=== PATIENT | male | born 1990 | race Caucasian/White ===

== ENCOUNTER 2019-04-15 03:41 | Inpatient (IN) | payer SELFPAY ==
[2019-04-15] MEDS ORDERED: SODIUM CHLORIDE 0.9% 1000ML 1,000 ML IVS ONE (04:32)
[2019-04-15] MEDS ORDERED: ACETAMINOPHEN 500 MG TAB PO ONE (04:32)
--- NOTE | 2019-04-15 04:41 | ED.PDOC ---
History of Present Illness - General Chief Complaint: Abdominal Pain Stated Complaint: abdominal pain Time Seen by Provider: 04/15/19 04:23 - History of Present Illness Initial Comments: 28 yo M no significant PMH presents to ED c/o generalized abdominal pain since 6pm. Denies fever chills nausea vomiting diarrhea chest pain sob diaphoresis. No change in bowel or bladder, symptoms have disturbed rest and appetite. Admits drinking and smoking denies FH HTN DM. Has no PMD for follow up. No other c/o today. Review of Systems - Review of Systems Constitutional: States: see HPI EENTM: States: see HPI Respiratory: States: see HPI Cardiology: States: see HPI Gastrointestinal/Abdominal: States: abdominal pain Genitourinary: States: see HPI Musculoskeletal: States: see HPI Skin: States: no symptoms reported Neurological: States: no symptoms reported Endocrine: States: no symptoms reported Hematologic/Lymphatic: States: no symptoms reported All other Systems: Reviewed and Negative Past Medical History (General) - Patient Medical History Hx Asthma: Yes - childhood Hx Diabetes: No Surgical History: no surgical history - Vaccination History Hx Influenza Vaccination: No - Social History Hx Alcohol Use: Yes - daily Family Medical History - Family History Mother Family History: Unknown Physical Exam - Physical Exam General Appearance: Other - uncomfortable Eyes, Ears, Nose, Throat Exam: normal ENT inspection Neck: non-tender, full range of motion Respiratory: normal breath sounds Cardiovascular/Chest: regular rate, rhythm Gastrointestinal/Abdominal: soft, tenderness - tender RLQ>LLQ Back Exam: normal inspection Extremity: normal range of motion Neurologic: no motor/sensory deficits Skin Exam: normal color Progress - Progress Progress: 04/15/19 04:43 A/P-Abdominal Pain 1.iv bolus tylenol GI Cocktail cbc cmp urinalysis lipase ct abdomen pelvis with IV contrast reassess 04/15/19 06:26 Laboratory Tests 04/15/19 04/15/19 04:39 04:39 WBC 11.2 H RBC 5.16 Hgb 16.6 Hct 47.3 MCV 91.6 MCH 32.1 H MCHC 35.0 RDW 12.7 Plt Count 279 MPV 8.6 Absolute Neuts (auto) 9.00 H Absolute Lymphs (auto) 1.20 Absolute Monos (auto) 0.90 H Absolute Eos (auto) 0.10 Absolute Basos (auto) 0.00 Neutrophils % 80.4 H Lymphocytes % 10.5 L Monocytes % 8.2 Eosinophils % 0.5 L Basophils % 0.4 Sodium 133 L Potassium 3.2 L Chloride 99 L Carbon Dioxide 21 Anion Gap 16.2 BUN 6 L Creatinine 0.67 BUN/Creatinine Ratio 9.0 L Random Glucose 114 H Serum Osmolality 264.9 L Calcium 9.3 Total Bilirubin 1.0 AST 22 ALT 24 Alkaline Phosphatase 55 Serum Total Protein 7.9 Albumin 4.9 Globulin 3.0 Albumin/Globulin Ratio 1.[address] Shows acute appendicitis, called Surgeon Dr. Wen who accepts patient will admit blood cultures x 2 mefoxin NPO Departure - Departure Clinical Impression: Acute appendicitis Qualifiers: Acute appendicitis type: unspecified acute appendicitis type Qualified Code(s): K35.80 - Unspecified acute appendicitis Abdominal pain Qualifiers: Abdominal location: right lower quadrant Qualified Code(s): R10.31 - Right lower quadrant pain Time of Disposition: 06:33 Disposition: Admit Patient Condition: Fair Departure Forms: ED Discharge - Pt. Copy, Patient Portal Self Enrollment Instructions: DI for Abdominal Pain-Adult Home Medications: Ambulatory Orders NK 04/15/19 Decision To Admit - Decistion To Admit Decision to Admit Reason: Admit from ER Decision to Admit Date: 04/15/19 Decision to Admit Time: 06:31
--- NOTE | 2019-04-15 05:47 | CT ---
CT ABDOMEN AND PELVIS WITH CONTRAST. CLINICAL HISTORY: Abdominal pain. COMPARISON: [None.] TECHNIQUE: Axial CT imaging of the abdomen and pelvis performed with intravenous contrast. Reformatted coronal and sagittal images reviewed. A dose reduction technique was utilized with automated exposure control according to patient size. FINDINGS: Clear lung bases. Heart is normal in size. Normal liver, gallbladder, spleen, pancreas, adrenal glands, and kidneys. Aorta and inferior vena cava are normal in caliber. No adenopathy. Mesenteric vessels appear normal. Normal stomach. Small bowel caliber is diffusely normal. No evidence of small bowel thickening. The appendix contains numerous intraluminal appendicoliths. The appendix is 1.1 cm. There is no periappendiceal edema. Mild descending colon diverticulosis. No diverticulitis. No mesenteric edema. No ascites or free air. Bladder is mildly thickened. Bladder is not fully distended. Normal prostate. No pelvic free fluid. There is a pars defect bilaterally at L5. There is minimal anterior subluxation of L5 on S1. Intact bony pelvis. Normal hips. IMPRESSION: 1. Acute appendicitis with numerous appendicoliths. No evidence of abscess or free air. 2. Mild descending colon diverticulosis without diverticulitis. 3. Bladder wall appears thickened, likely due to incomplete distention. Correlate with urinalysis. 4. 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 Electronically signed by: Mariposa Whittington DO 04/15/2019 5:43 AM CDT
[2019-04-15] MEDS ORDERED: cefOXitin SODIUM 2 GM in SODIUM CHL 0.9% 50ML MIN-BAG+ 50 ML IVPB ONE (06:30)
[2019-04-15] MEDS ORDERED: SODIUM CHL 0.9% 50ML MIN-BAG+ 50 ML IVPB ONE ×5 (06:39→19:28)
[2019-04-15] MEDS ORDERED: cefOXitin SODIUM 2 GM INJ IVPB ONE ×5 (06:39→19:28)
[2019-04-15] MEDS ORDERED: MORPHINE SULFATE INJ 10 MG/ML VIAL IV ONE (06:56)
[2019-04-15] MEDS ORDERED: ONDANSETRON INJ 4 MG/2 ML VIAL IV ONE ×2 (06:56→12:00)
[2019-04-15] MEDS: LACTATED RINGERS 1,000 ML IVS PRN ×3 (07:02→12:18)
[2019-04-15] MEDS ORDERED: cefOXitin SODIUM 2 GM in SODIUM CHL 0.9% 50ML MIN-BAG+ 50 ML IVPB SCH (08:30)
--- NOTE | 2019-04-15 08:58 | HP ---
CHIEF COMPLAINT: Abdominal pain. HISTORY OF PRESENT ILLNESS: The patient is a 28-year-old male who was in his normal state of good health until approximately 6 o'clock last night when he developed lower abdominal pain and associated nausea. He forced himself to vomit without improvement of his discomfort. He had a small amount of mashed potatoes last evening at approximately 10 o'clock and states he had 2 alcoholic drinks last night. His pain worsened. He presented to the Emergency Room and was found to have elevated white blood cell count. CT scan was obtained and was consistent with acute appendicitis with no free air or free fluid. He was admitted for IV antibiotic therapy followed by appendectomy today. PAST MEDICAL HISTORY: Insignificant. MEDICATIONS: He takes no medications on a routine basis. ALLERGIES: NO KNOWN DRUG ALLERGIES. FAMILY HISTORY: Noncontributory. SOCIAL HISTORY: The patient is single. 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 He has less than a 10-pack year history of tobacco abuse. He drinks alcohol most evenings, moderate to large amount. He denies inability to go without alcohol, however. REVIEW OF SYSTEMS: There has been no weight loss. No change in bowel habits. No upper respiratory symptoms, no shortness of breath or chest pain. He denies urinary tract symptoms. PHYSICAL EXAMINATION: GENERAL: The patient is awake, alert, cooperative, in minimally acute distress. VITAL SIGNS: The patient is currently afebrile. Pulse rate 60. Blood pressure 145/100. Pulse oximetry 99% on room air. Respiratory rate 18. HEENT: Sclerae nonicteric. Mucous membranes minimally dry. NECK: Without adenopathy. BACK: Without CVA tenderness. CHEST: Equal breath sounds bilaterally. HEART: Regular rhythm. ABDOMEN: Soft. There is tenderness in the right lower quadrant without mass or guarding. RECTAL: Deferred. EXTREMITIES: Without cyanosis, clubbing or edema. LABORATORY: White blood cell count 11,000, hemoglobin 16.6, platelet count 379,000, 80% neutrophils. Potassium 3.2. Random blood sugar 114. Creatinine 0.67. Liver functions within normal limits. Lipase 28. Urine shows specific gravity 1.015, ketones 40, leukocyte esterase negative, bacteria 0. RADIOLOGY: CT scan of his abdomen revealed multiple appendicoliths with a dilated appendix consistent with acute appendicitis. ASSESSMENT: 1. Abdominal pain. 2. Leukocytosis. 3. Abnormal CT scan suspicious for appendicitis. PLAN: The risks, benefits and alternatives to laparoscopy, appendectomy and indicated procedures were discussed with the patient. His questions were answered. The plan is to proceed when an Operating Room is available later this morning or early afternoon. #[id number] [facility]
[2019-04-15] MEDS ORDERED: BUPIVACAINE 0.25% W/EPI 50 ML VIAL INJ ONE ×3 (09:34→10:31)
[2019-04-15] MEDS ORDERED: MIDAZOLAM INJ 2 MG/2 ML VIAL ONE (09:41)
[2019-04-15] MEDS ORDERED: ROCURONIUM BROMIDE 10 MG/ML VIAL ONE (09:41)
[2019-04-15] MEDS ORDERED: SUGAMMADEX SODIUM 200 MG/2 ML VIAL IV ONE (09:41)
[2019-04-15] MEDS ORDERED: fentaNYL CITRATE INJ 50 MCG/ML AMP ONE (09:41)
[2019-04-15] MEDS ORDERED: ONDANSETRON INJ 4 MG/2 ML VIAL IV PRN (11:07)
[2019-04-15] MEDS ORDERED: MORPHINE SULFATE INJ 10 MG/ML VIAL IV PRN (11:07)
--- NOTE | 2019-04-15 11:34 | OP ---
DATE OF PROCEDURE: 04/15/19 PREOPERATIVE DIAGNOSIS: 1. Right lower quadrant abdominal pain. 2. Leukocytosis. 3. Abnormal CT scan suspicious for appendicitis. POSTOPERATIVE DIAGNOSIS: 1. Right lower quadrant abdominal pain. 2. Leukocytosis. 3. Abnormal CT scan suspicious for appendicitis. 4. Acute appendicitis. PROCEDURE: 1. Laparoscopy. 2. Appendectomy. SURGEON: Ney Wen MD. SCHOOL BUS DRIVER: None. ANESTHESIA: General endotracheal anesthesia and local infiltration of 0.25% Marcaine with epinephrine. INDICATION: The patient is a 28-year-old male who developed abdominal discomfort and nausea last night. It worsened despite him causing himself to vomit. He presented to the Emergency Room and was found to have elevated white count of 11,000. CT scan revealed a dilated appendix with multiple appendicoliths and small amount of wall thickening. He was admitted, started on IV Mefoxin and brought to the Surgical Suite this morning for a laparoscopic appendectomy. FINDINGS: The appendix was distended, tense. There was no exudate or fluid collection with a small amount of clear serous fluid in the pelvis. PROCEDURE: After adequate general endotracheal anesthesia was obtained, the patient was shaved. A Dye catheter was placed. He was prepped and draped in the usual sterile manner. At this time, a surgical time-out was taken. The infraumbilical area was infiltrated with local anesthesia. A curvilinear incision was fashioned and carried down through the subcutaneous tissue to the midline fascia. Traction sutures were placed on either side of the midline. A small incision was made in the midline fascia. The peritoneum was opened bluntly. Leandra trocar was introduced under direct vision into the abdominal cavity and fixed in place with a 20 mL balloon. CO2 was then insufflated until a pressure of 12 mmHg was reached and the abdomen was tympanitic in all four quadrants. When this was done, the laparoscope was introduced and the abdomen was inspected with the previously noted findings. This included inspecting the upper abdomen. When this was done, a suprapubic port was placed under direct vision in the usual manner. The right lower quadrant was explored and the appendix was identified. At this point, the left lower quadrant port was placed under direct vision in the usual manner. When this was done, the appendix was elevated. The base of the appendix was identified. The mesoappendix at the base of the appendix was divided using blunt dissection. The Endo-LU was with a vascular load was then introduced and the base of the appendix was stapled and divided, as was the mesoappendix. There was still a small amount of tissue that had not been divided. This was generally clear tissue that was divided with sharp dissection. The appendix was then placed in an EndoCatch bag and removed from the left lower quadrant port in the usual manner under direct vision. When this was done, the right lower quadrant and pelvis were both inspected and 4x4s were introduced through the port and used to mop up the fluid and blood. When this was done with 2 sponges and they were removed, again, the right lower quadrant, the base of the appendix, base of the cecum were inspected. There was no active bleeding. No other pathology was identified. At this point, the left lower quadrant port was removed and the port site fascia was approximated with two simple sutures of 0 Vicryl placed using the EndoClose device. When these were tightened and tied, hemostasis was noted to be good. At this point, the CO2, the laparoscope and the infraumbilical port were removed. The infraumbilical port site fascia was approximated with a single [id number] suture of 0 Vicryl. Subcutaneous tissue was irrigated with saline. Skin edges were approximated loosely with skin vince. Sterile dressings were applied. The patient was awakened, Dye catheter was removed and taken to the Recovery Room in stable condition. Estimated blood loss was less than 50 mL. All sponge, needle and instrument counts were correct. #[id number] [facility]
[2019-04-15] MEDS ORDERED: LIDOCAINE 1% 10 ML VIAL INJ ONE (12:00)
[2019-04-15] MEDS ORDERED: PROPOFOL 200 MG/20 ML VIAL IV ONE (12:00)
[2019-04-15] MEDS ORDERED: DEXAMETHASONE INJ 10 MG/ML VIAL IV ONE (12:00)
[2019-04-15] MEDS: cefOXitin SODIUM 2 GM in SODIUM CHL 0.9% 50ML MIN-BAG+ 50 ML IVPB SCH ×2 (12:18→19:38)
[2019-04-15] MEDS: HYDROcodone 5MG/APAP 325MG 1 EA TAB PO PRN ×2 (15:04→20:42)
[2019-04-16] MEDS: LACTATED RINGERS 1,000 ML IVS PRN (00:46)
[2019-04-16] MEDS: HYDROcodone 5MG/APAP 325MG 1 EA TAB PO PRN ×2 (00:47→06:08)
[2019-04-16 00:53] VITALS: O2SAT 96
[2019-04-16] MEDS: cefOXitin SODIUM 2 GM in SODIUM CHL 0.9% 50ML MIN-BAG+ 50 ML IVPB SCH (04:02)
[2019-04-16] MEDS ORDERED: PANTOPRAZOLE SODIUM TAB 40 MG PO SCH (06:30)
[2019-04-16 08:09] VITALS: BP 115/78; TEMP 98.2
--- NOTE | 2019-04-16 11:10 | DS ---
FINAL DIAGNOSIS: 1. Acute appendicitis pending pathology report. SURGICAL PROCEDURE: On 04/15/19, the patient underwent laparoscopic appendectomy. HISTORY OF PRESENT ILLNESS: The patient is a 28-year-old male who was in his normal state of good health until approximately 6 o'clock last night when he developed lower abdominal pain and associated nausea. He forced himself to vomit without improvement of his discomfort. He had a small amount of mashed potatoes last evening at approximately 10 o'clock and states he had 2 alcoholic drinks last night. His pain worsened. He presented to the Emergency Room and was found to have elevated white blood cell count. CT scan was obtained and was consistent with acute appendicitis with no free air or free fluid. He was admitted for IV antibiotic therapy followed by appendectomy today. LABORATORY: On the date of admission, white blood cell count was 11.2 with 82% neutrophils. Hemoglobin had dropped from 16.6 to 14.8, platelet count from 279 to 215. Pathology report is pending. HOSPITAL COURSE: The patient was admitted through the Emergency Room and given a dose of IV Mefoxin. He was taken to the Operating Room where he underwent the laparoscopic appendectomy without problems. He tolerated liquids and ambulated. The first postoperative day, he was passing gas. His abdomen was noted to be soft with active bowel sounds on postoperative day #1. He was voiding without difficulty although his urine was still somewhat concentrated. At this time at 8:40, he is discharged home. CONDITION ON DISCHARGE: Good. PROGNOSIS: Excellent pathology report. DISPOSITION: The patient is to call my office for an appointment for 04/27/19. He is discharged on a regular diet, told to push fluids and to walk, but do no lifting or exercise. He was told he can shower, but not tub bath. He is discharged on a prescription for Ceftin 500 mg and [place] 5. He is instructed to call me if he has any questions or problems prior to his appointment. #[id number] [facility]
== END 2019-04-16 09:15 | disposition home or self-care (01) | DRG 343 ==
LOC: ER 03:41 → MS 08:05
PROVIDERS: ADMIT Surgery; ATTEND Surgery
PROC: BW211ZZ Computerized Tomography (CT Scan) of Abdomen and Pelvis using Low Osmolar Contrast (ICD-10-PCS; 2019-04-15)
PROC: 0DTJ4ZZ Resection of Appendix, Percutaneous Endoscopic Approach (ICD-10-PCS; principal; 2019-04-15 10:00)
DX: K35.80 Unspecified acute appendicitis (principal); F17.210 Nicotine dependence, cigarettes, uncomplicated